=== PATIENT | female | born 1985 | race Caucasian/White ===

== ENCOUNTER 2018-04-23 08:53 | Day surgery (SDC) | payer MEDICAID ==
[2018-04-23] MEDS: SOD CHLORIDE 0.9% 1,000 ML IV (06:00)
[~2018-04-23 08:53] MED LIST: CEFAZOLIN 1 GM/50 ML (PMX) 50 ML IVPB; LIDOCAINE 2% (SDV) 5 ML INJ; SEVOFLURANE 15 MIN
[2018-04-23] MEDS ORDERED: HYDROmorphONE 1 MG/5 ML IV SYRINGE IV ×2 (10:30)
[2018-04-23] MEDS ORDERED: ONDANSETRON 4 MG INJ IV (10:30)
[2018-04-23] MEDS ORDERED: OXYCODONE/ACETAMINOPHEN (5/325) TAB PO (10:30)
[2018-04-23] MEDS ORDERED: FENTAnyl 50 MCG/ML VIAL IV ×3 (10:30)
[2018-04-23] MEDS ORDERED: MEPERIDINE 25 MG INJ IV (10:30)
[2018-04-23] MEDS ORDERED: PROCHLORPERAZINE 10 MG INJ IV (10:30)
[2018-04-23] MEDS ORDERED: DIPHENHYDRAMINE 50 MG INJ IV (10:30)
[2018-04-23] MEDS ORDERED: MIDAZOLAM 1 MG/ML 2 ML INJ (10:43)
[2018-04-23] MEDS ORDERED: PROPOFOL 20 ML (10:49)
[2018-04-23] MEDS ORDERED: FENTAnyl 50 MCG/ML VIAL (10:52)
[2018-04-23] MEDS ORDERED: PHENYLephrine (100 MCG/ML) 5ML SYG (10:55)
[2018-04-23] MEDS ORDERED: CEFAZOLIN 1 GM INJ (10:59)
[2018-04-23] MEDS ORDERED: ONDANSETRON 4 MG INJ (11:00)
[2018-04-23] MEDS ORDERED: DEXAMETHASONE 4 MG/ML 5 ML INJ (11:00)
[2018-04-23] MEDS: BUPIVACAINE 0.5% (SDV) 30 ML INJ (11:00)
[2018-04-23] MEDS ORDERED: FAMOTIDINE 20 MG INJ (11:00)
[2018-04-23] MEDS: HYDROmorphONE 1 MG/5 ML IV SYRINGE IV (11:52)
== END 2018-04-23 14:00 | disposition home or self-care (01) ==
LOC: SDS 08:53
DX: N60.22 Fibroadenosis of left breast (principal)
CPT/HCPCS: 19101; 84703; 88307